=== PATIENT | male | born 1965 | race Caucasian/White ===

== ENCOUNTER 2019-02-27 19:04 | Emergency (ER) | payer BC ==
[~2019-02-27] VITALS: Ht 172.7 cm; Wt 147.4 kg
[~2019-02-27 19:04] MED LIST: LIPITOR10 MG; LISINOPRIL10 MG; METOPROLOL SUCC50 MG; PLAVIX75 MG PO
--- NOTE | 2019-02-27 20:11 | Diagnostic Imaging Report ---
LEFT KNEE - 3 Images HISTORY: Pain COMPARISON: None available. FINDINGS: Bones: No acute displaced fracture. No aggressive osseous lesion. Joints: Mild medial compartment narrowing. Minimal tricompartmental marginal osteophytosis. Soft tissues: The soft tissues appear unremarkable. IMPRESSION: 1. No acute radiographic abnormality. 2. Tricompartmental osteoarthrosis, mild medial compartment predominance. Signed by: Dr. Vj Oneal D.O., M.M.M. on 02/27/2019 8:07 PM
[2019-02-27] MEDS ORDERED: IBUPROFEN 200 MG TAB ONE (20:20)
[2019-02-27 20:21] VITALS: BP 140/78
[2019-02-27] MEDS ORDERED: IBUPROFEN 400 MG TAB PO ONE (20:30)
== END 2019-02-27 20:25 | disposition home or self-care (01) ==
LOC: FSED 19:04
DX: M25.562 Pain in left knee (principal); M17.12 Unilateral primary osteoarthritis, left knee; R26.2 Difficulty in walking, not elsewhere classified; I10 Essential (primary) hypertension; E66.9 Obesity, unspecified; K21.9 Gastro-esophageal reflux disease without esophagitis; E78.5 Hyperlipidemia, unspecified
CPT/HCPCS: 99283

== ENCOUNTER 2019-11-03 09:25 | Observation (INO) | payer BC ==
[~2019-11-03] VITALS: Ht 172.7 cm; Wt 137.4 kg
[~2019-11-03 09:25] MED LIST changes: -LIPITOR10 MG; +LIPITOR10 MG PO; -LISINOPRIL10 MG; +LISINOPRIL10 MG PO; -METOPROLOL SUCC50 MG; +METOPROLOL SUCC50 MG PO
--- OUTSIDE RECORDS SUMMARY | 2019-11-03 09:28 | XMS REPORT ---
Author Author [facility] Address Unknown Phone Unavailable Care Team Providers Care Competency Evaluated Nurse Aide Name Role Phone SABIHA RAMIRES Unavailable Unavailable Problems This patient has no known problems. Allergies, Adverse Reactions, Alerts This patient has no known allergies or adverse reactions. Medications This patient has no known medications. Results Test Description Test Time Test Comments Text Results Atomic Results Result Comments KNEE 3VW LT - HOPD 2019-02-27 20:04:00 [facility] [address] [address] Patient Name: PAPO TOLENTINO MR #: [id number] : 1965 Age/Sex: 53/M Req #: [id number] [facility] Physician: Ordered by: SABIHA RAMIRES MD Report #: [id number] Location: [facility] Room/Bed: Procedure: [id number] HOPD/KNEE 3VW LT - HOPD Exam Date: 02/27/19 Exam Time: 1954 REPORT STATUS: Signed LEFT KNEE - 3 Images HISTORY: Pain C OMPARISON: None available. FINDINGS: Bones: No acute displaced fracture. No aggressive osseous lesion. Joints: Mild medial compartment narrowing. Minimal tricompartmental marginal osteophytosis. Soft tissues: The soft tissues appear unremarkable. IMPRESSION: 1. No acute radiographic abnormality. 2. Tricompartmental osteoarthrosis, mild medial compartment predominance. Signed by: Luis Fernando TalbotO., M.M.M. on 02/27/2019 8:07 PM Dictated By: MAGGIE NAVA DO 06 Transcribed By: JASBIR on 02/27/192006 COPY TO: SABIHA RAMIRES MD
[2019-11-03] MEDS ORDERED: MORPHINE SULFATE INJ 4 MG/ML INJ 1ML IV STA (09:49)
--- NOTE | 2019-11-03 10:10 | Diagnostic Imaging Report ---
Chest, PA and lateral. History: Midsternal chest pain. Comparison: None available. Discussion: The cardiomediastinal silhouette and pulmonary vasculature are within normal limits. The lungs are clear without evidence of consolidation or effusion. There are degenerative changes of the thoracic spine. IMPRESSION: No radiographic evidence of acute cardiopulmonary abnormality. Signed by: Osorio Buck MD on 11/03/2019 10:07 AM
[2019-11-03] MEDS ORDERED: ONDANSETRON HCL INJ 2MG/ML 2ML 2 MG/ML VIAL IV PRN (11:30)
[2019-11-03] MEDS ORDERED: ASPIRIN 81 MG CHEW TAB PO ONE (11:30)
[2019-11-03] MEDS ORDERED: MORPHINE SULFATE INJ 4 MG/ML INJ 1ML IV PRN (11:30)
[2019-11-03 11:32] LABS: BASOPHILS # (AUTO) 0.1 (0.0-0.1); BASOPHILS % 0.6 % (0.0-1.0); EOSINOPHILS # (AUTO) 0.3 (0.0-0.4); EOSINOPHILS % 3.5 % (0.0-6.0); HEMATOCRIT 46.3 % (38.2-49.6); HEMOGLOBIN 15.6 g/dL (14.0-18.0); LYMPHOCYTES # (AUTO) 2.1 (1.0-3.2); LYMPHOCYTES % 24.9 % (18.0-39.1); MEAN CORPUSCULAR HEMOGLOBIN 31.5 pg (28-32); MEAN CORPUSCULAR HGB CONC 33.7 g/dL (31-35); MEAN CORPUSCULAR VOLUME 93.5 fL (81-99); MONOCYTES # (AUTO) 0.8 (0.2-0.8); MONOCYTES % 9.8 % (4.4-11.3); NEUTROPHILS # (AUTO) 5.1 (2.1-6.9); NEUTROPHILS % 60.8 % (38.7-80.0); PLATELET COUNT 249 x10e3/uL (140-360); RED BLOOD COUNT 4.95 x10e6/uL (4.3-5.7); RED CELL DISTRIBUTION WIDTH 13.3 % (11.7-14.4)
[2019-11-03 11:50] LABS: PARTIAL THROMBOPLASTIN TIME 31.1 seconds (23.8-35.5); PROTHROMBIN TIME 13.8 seconds (11.9-14.5)
[2019-11-03 11:54] LABS: ALANINE AMINOTRANSFERASE 27 IU/L (0-55); ALBUMIN 4.1 g/dL (3.5-5.0); ALKALINE PHOSPHATASE 79 IU/L (40-150); ANION GAP 13.6 mmol/L (8-16); BLOOD UREA NITROGEN 16 mg/dL (7-26); BUN/CREATININE RATIO 16 (6-25); CARBON DIOXIDE 23 mmol/L (22-29); CHLORIDE 107 mmol/L (98-107); CREATINE KINASE 121 IU/L (30-200); CREATININE, SERUM 1.02 mg/dL (0.72-1.25); EST GLOMERULAR FILTRATION RATE > 60 ML/MIN (60-); GLUCOSE 79 mg/dL (74-118); POTASSIUM 4.6 mmol/L (3.5-5.1); SODIUM 139 mmol/L (136-145)
[2019-11-03] MEDS ORDERED: ACETAMINOPHEN 325 MG TAB PO PRN (13:15)
--- NOTE | 2019-11-03 13:28 | NUR ---
dr jordan at pt bedside
--- NOTE | 2019-11-03 13:56 | NUR ---
RCD PT FROM ER BY BED PT IS ALERT AND ORIENTED VITALS CHECKED PT RESTING ON BED ADMISSION ASSESSMENT AND HISTORY DONE IV PATENT BY SALINE FLUSH INSTRUCTED THE PT REGARDING HOSPITAL POLICY AND ROUTINE BED LOW AND LOCKED CALL LIGHT IN REACH
[2019-11-03 14:43] VITALS: BP 138/77
[2019-11-03 15:12] VITALS: BP 138/77
[2019-11-03 15:21] VITALS: BP 138/77
--- NOTE | 2019-11-03 18:38 | NUR ---
PT RESTING ON BED BED SIDE REPORT GIVEN TO ONCOMING NURSE
--- NOTE | 2019-11-03 19:05 | NUR ---
WHILE THE BED SIDE REPORT TALKED THE NURSE DR CUMMINGS WAITING FOR THE CARDIAC ENZYMES REPORT ,PLEASE CALL THE REPORT WHEN IT READY
--- NOTE | 2019-11-03 19:05 | NUR ---
bedside shift report received from Mey LARSEN, PER [facility] CARDIAC ENZYMES ORDERED STAT RESULTS NEED TO BE CALLED TO MD EMILIANO DDOSON, RESULTS REMAIN PENDING, LAB CALLED BY [facility] TO SEE WHAT TIME THEY WILL POST
[2019-11-03 19:17] LABS: CREATINE KINASE 88 IU/L (30-200)
--- NOTE | 2019-11-03 19:50 | NUR ---
MD CUMMINGS CALLED AND CONTACTED ME FOR RESULT OF SECOND SET OF CARDIAC ENZYMES, ADVISED HIM THAT CK, CK-MB, AND TROPONIN I ARE ALL NEGATIVE, THIRD SET WILL BE DRAWN THIS SHIFT AT 0400
[2019-11-03 20:00] VITALS: BP 102/59
--- NOTE | 2019-11-03 20:25 | History and Physical ---
HISTORY OF PRESENT ILLNESS: The patient is a 54-year-old male with past medical history positive for coronary artery disease, status post stent in 2006, history of hypercholesterolemia, also obesity. The patient had an episode of chest pain. He was admitted to the hospital. REVIEW OF SYSTEMS: CARDIOVASCULAR: He had chest pain and shortness of breath. RESPIRATORY: Shortness of breath. No cough. GASTROINTESTINAL: No nausea. No vomiting. No diarrhea. GENITOURINARY: No frequency or dysuria. ALLERGIES: HE IS ALLERGIC TO CODEINE. PAST MEDICAL HISTORY: Coronary artery disease, status post stent back in 2006. He had a recent adenosine Cardiolite stress test done a week ago, which was negative for ischemia, but the foamite mixer told him that if the chest pain recurs, he will do a cardiac cath since the stent was placed in 2006. SOCIAL HISTORY: He does not smoke, does not drink. PHYSICAL EXAMINATION: HEART: Showed regular rhythm. Normal S1, S2 sounds. LUNGS: Clear bilaterally. ABDOMEN: Soft. EXTREMITIES: Show no evidence of edema. VITAL SIGNS: Blood pressure 124/63, heart rate 56 per minute, respiratory rate 14 per minute, O2 saturation 98%. LABORATORY DATA: On the blood work, we have BMP; sodium 139, potassium 4.6, chloride 107, CO2 23, BUN 16, creatinine 1.02, glucose 79, calcium 10.0, total bilirubin 1.6, AST 26, ALT 27, alkaline phosphatase 79, creatine kinase 121, CK-MB 0.50, troponin 0.001, brain natriuretic peptide 35.2, total protein 8.4, albumin 4.1, lipase is 41. On CBC, white blood count 8.34, hemoglobin 15.6, hematocrit 46.3, platelet count 249,000. PT 13.8, INR 1.00, PTT 31.1. Chest x-ray showed no significant cardiopulmonary abnormalities. EKG showed normal sinus rhythm, no evidence of any ST-segment elevation or depression. IMPRESSION: 1. Coronary artery disease, unstable angina. 2. Hypertension. 3. Obesity. 4. Hypercholesterolemia. PLAN OF TREATMENT: We are going to continue with Toprol, Lipitor, aspirin. Cardiology consult with Dr. Rich and he will be admitted on Tylenol 350 mg q.4 hours as needed for pain or fever. Robi Sri, MD LAS/ALYSON /[id number]
[2019-11-03 20:30] VITALS: BP 138/77
[2019-11-03] MEDS ORDERED: ATORVASTATIN 20 MG TAB PO SCH (21:00)
[2019-11-03 22:05] VITALS: BP 138/77
[2019-11-04] VITALS (9 sets, daily range): BP systolic 103–146; BP diastolic 55–86
--- NOTE | 2019-11-04 00:41 | Consultation ---
DATE OF CONSULTATION: 11/03/2019 Cardiac Consultation REASON FOR CONSULTATION: Chest pain and palpitations. HISTORY OF PRESENT ILLNESS: This is a 54-year-old gentleman, who is known with morbid obesity, hypertension, hyperlipidemia, coronary artery disease, status post myocardial infarction in July 2007, done by another oil house attendant. Repeat catheterization showed the stent is restenosed. Since that time, the patient followed by Dr. Reddy in the [facility]. He was seen recently. He had an echocardiogram and PET scanning and he has been told things are almost the same. The patient is having for the last couple months or so feeling all suddenly tightness, not feeling well, chest pressure. On exertion also, he will have symptoms. For that reason, he had all these tests. He came to the emergency room because he had another episode. Basically, his episodes are combination of palpitation, dumping like syndrome, easy fatigability, shortness of breath on exertion. REVIEW OF SYSTEMS: GENERAL: No fever. No chills. HEENT: No vision problem. No hearing problem. PULMONARY AND CARDIAC: As per acute illness. GI: Bloating, indigestion. : Increased frequency of urination. MUSCULOSKELETAL: Low back pain, knee pain. NEUROLOGICAL: No seizure activity. No weakness. ENDOCRINE: No diabetes mellitus. SOCIAL HISTORY: He is single. He is nonsmoker and non-alcohol drinker. He is in [employer] business. PAST MEDICAL HISTORY: 1. Coronary artery disease, myocardial infarction in 2006. 2. Hypertension since year 1999. 3. Hyperlipidemia since year 1999. 4. Cholecystectomy in 2007. 5. Gastric sleeve surgery in 2014. 6. Low back pain. 7. Knee pain. HOME MEDICATIONS: Lipitor 10 mg a day, Plavix 75 mg a day, lisinopril 10 mg a day, metoprolol tartrate 100 mg twice a day, Protonix 40 mg a day. ALLERGIES: CODEINE. FAMILY HISTORY: Father of suicide at age 34. Mother doing well at age 74. No brother. One sister with cervical cancer. No children. PHYSICAL EXAMINATION: VITAL SIGNS: Height of 5 feet 8 inches, weight of 303 pounds, blood pressure 130/70, heart rate of 50, respiratory rate of 18, and temperature of 97 Fahrenheit. HEENT: Pupils are equal and reactive. NECK: No elevation of jugular venous pulsation. No bruit. CHEST: Clear to auscultation and percussion. HEART: PMI in 5th left intercostal space. Normal first and second heart sounds. ABDOMEN: Soft with good bowel sounds. No organomegaly. No abdominal bruits. EXTREMITIES: No cyanosis, no clubbing, no edema. NEUROLOGIC: Awake, alert, and oriented. No motor or sensory deficits. LABORATORY DATA: Sodium of 139, potassium of 4.6, BUN of 16, creatinine of 1.2. Hemoglobin of 15.6, hematocrit 46%, white blood cell count of 8.3. EKG showing normal sinus rhythm. First set of cardiac enzymes normal. BNP of 35. IMPRESSION AND PLAN: 1. Chest pain in a patient with known coronary artery disease, status post prior PCI. 2. Hypercholesteremia. 3. Prior myocardial infarction and stent. 4. Palpitation. 5. Morbid obesity. Case discussed at length with the patient. Serial cardiac enzymes to be done. If the enzymes are negative, the patient has the option to go home and to be followed by his oil house attendant for further testing. If his enzymes are positive, then the patient will have a cardiac catheterization with possible intervention. All this are discussed and explained. Questions are answered. MD CIRA Nolasco/ALYSON /[id number]
--- NOTE | 2019-11-04 03:57 | NUR ---
CARDIAC ENZYMES DRAWN USING ASEPTIC TECHNIQUE SENT TO LAB FOR RESULTS
--- NOTE | 2019-11-04 04:49 | NUR ---
TELEMETRY REPORTING SR 63 BPM, PATIENT SEEN RESTING COMFORTABLY NO DISTRESS NOTED
[2019-11-04 05:22] LABS: BASOPHILS # (AUTO) 0.1 (0.0-0.1); BASOPHILS % 0.7 % (0.0-1.0); EOSINOPHILS # (AUTO) 0.4 (0.0-0.4); EOSINOPHILS % 4.9 % (0.0-6.0); HEMATOCRIT 43.1 % (38.2-49.6); HEMOGLOBIN 14.2 g/dL (14.0-18.0); LYMPHOCYTES # (AUTO) 2.1 (1.0-3.2); LYMPHOCYTES % 28.7 % (18.0-39.1); MEAN CORPUSCULAR HEMOGLOBIN 31.4 pg (28-32); MEAN CORPUSCULAR HGB CONC 32.9 g/dL (31-35); MEAN CORPUSCULAR VOLUME 95.4 fL (81-99); MONOCYTES # (AUTO) 0.7 (0.2-0.8); MONOCYTES % 10.2 % (4.4-11.3); NEUTROPHILS % 55.2 % (38.7-80.0); PLATELET COUNT 184 x10e3/uL (140-360); RED BLOOD COUNT 4.52 x10e6/uL (4.3-5.7); RED CELL DISTRIBUTION WIDTH 13.4 % (11.7-14.4)
[2019-11-04 05:46] LABS: ALANINE AMINOTRANSFERASE 21 IU/L (0-55); ALBUMIN 3.5 g/dL (3.5-5.0); ALBUMIN/GLOBULIN RATIO 1.1 (0.8-2.0); ALKALINE PHOSPHATASE 67 IU/L (40-150); ANION GAP 12.7 mmol/L (8-16); BLOOD UREA NITROGEN 16 mg/dL (7-26); BUN/CREATININE RATIO 17 (6-25); CALCIUM 8.9 mg/dL (8.4-10.2); CARBON DIOXIDE 25 mmol/L (22-29); CHLORIDE 105 mmol/L (98-107); CHOL/HDL RATIO 3.4 (3.9-4.7); CHOLESTEROL 117 MD/DL (0-199); CREATININE, SERUM 0.92 mg/dL (0.72-1.25); EST GLOMERULAR FILTRATION RATE > 60 ML/MIN (60-); GLUCOSE 97 mg/dL (74-118); HDL CHOLESTEROL 34 MG/DL (40-60); LDL CHOLESTEROL 65 MG/DL (60-130); POTASSIUM 3.7 mmol/L (3.5-5.1); SODIUM 139 mmol/L (136-145); TRIGLYCERIDES 88 MG/DL (0-149)
[2019-11-04 06:07] LABS: THYROID STIMULATING HORMONE 1.662 uIU/mL (0.350-4.940)
--- NOTE | 2019-11-04 07:05 | NUR ---
PATIENT IS AWAKE, ALERT, AND IN STABLE CONDITION WITH NO S/S OF RESPIRATORY DISTRESS. NO C/O CHEST PAIN VOICED BY PATIENT. TELEMETRY APPLIED. CALL LIGHT IS WITHIN REACH, PATIENT INSTRUCTED TO CALL FOR ASSISTANCE NEEDED.
[2019-11-04] MEDS ORDERED: METOPROLOL SUCCINATE 50 MG TAB XL PO SCH (09:00)
[2019-11-04] MEDS ORDERED: LISINOPRIL 10 MG TAB PO SCH (09:00)
[2019-11-04] MEDS ORDERED: METOPROLOL TARTRATE 25 MG TAB PO SCH (09:00)
[2019-11-04] MEDS ORDERED: ASPIRIN 325 MG TAB PO SCH (09:00)
[2019-11-04] MEDS ORDERED: CLOPIDOGREL BISULFATE 75 MG TAB PO SCH (09:00)
[2019-11-04] MEDS ORDERED: ONDANSETRON HCL 4 MG ORAL DISINTEGRATING TAB PO PRN (11:00)
--- NOTE | 2019-11-04 12:26 | NUR ---
PATIENT DISCHARGE HOME- PATIENT OFF THE UNIT AT 1127 PER WHEELCHAIR ACCOMPANIED BY PCT TO HIS MOTHER'S PERSONAL VEHICLE. PATIENT IN STABLE CONDITION WITH NO S/S OF RESPIRATORY DISTRESS. NO CHEST PAIN VOICED. IV REMOVED WITH TIP INTACT. DISCHARGE TEACHING AND INSTRUCTIONS GIVEN TO THE PATIENT. ALL PERSONAL ITEMS TAKEN WITH THE PATIENT AND HIS MOTHER.
--- NOTE | 2019-11-05 01:39 | Discharge Summary ---
HOSPITAL COURSE: The patient is a 54-year-old male with past medical history of positive for coronary artery disease, status post stent, hypertension, hypercholesterolemia, obesity, came here with chest pain. EKG was essentially unremarkable. No evidence of any ST-segment elevation or depression. Echocardiogram was done, also showed ejection fraction 40% to 45%, preliminary report showed no evidence of pericardial effusion. No evidence of severe valvular abnormality. The patient was seen by Dr. Mayberry, director vaccine. Troponins x2 were completely negative. The patient is chest pain free. The patient declined to have a cardiac catheterization done over here. He want to be done by his director vaccine, so he is going to be discharge home today, Cardiology releasing to go home. PHYSICAL EXAMINATION: HEART: Showed regular rhythm. Normal S1, S2 sound. LUNGS: Clear bilaterally. ABDOMEN: Soft. EXTREMITIES: Showed no evidence of cyanosis or hematoma. IMPRESSION: 1. Coronary artery disease-unstable angina. 2. Hypertension. 3. Hypercholesterolemia. 4. Obesity. PLAN OF TREATMENT: He is going to resume the home medication, which include all the antiplatelet agents and statins including aspirin 325 mg daily, continue Lipitor 20 mg daily, Plavix 75 mg daily, lisinopril 10 mg daily, metoprolol 50 mg daily. The patient going to be discharged home today with instruction to follow up with primary care physician. Diet, low-salt diet. He is going to see his director vaccine, Dr. Mayberry this week. Also, he declined to have a cardiac cath here. MD DAISHA Fry/ALYSON /[id number]
== END 2019-11-04 11:27 | disposition home or self-care (01) ==
LOC: ER 09:25 → ERHOLD 11:25 → MED/SURG2 14:08
PROVIDERS: ADMIT Internal Medicine; ATTEND Internal Medicine
DX: I25.110 Atherosclerotic heart disease of native coronary artery with unstable angina pectoris (principal); Z88.5 Allergy status to narcotic agent; Z95.5 Presence of coronary angioplasty implant and graft; E78.00 Pure hypercholesterolemia, unspecified; I10 Essential (primary) hypertension; Z68.42 Body mass index [BMI] 45.0-49.9, adult; I25.2 Old myocardial infarction; E78.5 Hyperlipidemia, unspecified; Z90.49 Acquired absence of other specified parts of digestive tract; E66.01 Morbid (severe) obesity due to excess calories; R00.2 Palpitations
CPT/HCPCS: 36415 ×2; 71046; 80053 ×2; 80061; 82550; 82553; 82948; 83690; 83880; 84443; 84484; 85025 ×2; 85610; 85730; 93005; 93306; 99284; G0378 ×2

== ENCOUNTER 2021-07-17 13:59 | Emergency (ER) | payer BC ==
[~2021-07-17] VITALS: Ht 172.7 cm; Wt 139.4 kg
[2021-07-17] MEDS ORDERED: PROTONIX20 MG PO (14:52)
[2021-07-17] MEDS ORDERED: CEFDINIR300 MG PO (16:16)
== END 2021-07-17 16:26 | disposition home or self-care (01) ==
LOC: FSED 16:15
DX: J01.90 Acute sinusitis, unspecified (principal); R43.2 Parageusia; R63.1 Polydipsia; I10 Essential (primary) hypertension; E78.5 Hyperlipidemia, unspecified; K21.9 Gastro-esophageal reflux disease without esophagitis; E66.01 Morbid (severe) obesity due to excess calories; Z98.84 Bariatric surgery status; I25.2 Old myocardial infarction; Z95.5 Presence of coronary angioplasty implant and graft; Z86.79 Personal history of other diseases of the circulatory system
CPT/HCPCS: 36415; 81003; 82948; 99283

== ENCOUNTER 2025-03-21 08:50 | Emergency (ER) | payer BC ==
[~2025-03-21] VITALS: Ht 172.7 cm; Wt 139.3 kg
[~2025-03-21 08:50] MED LIST changes: +CEFDINIR300 MG PO; +PROTONIX20 MG PO
[2025-03-21 09:23] VITALS: TEMP 98.2
[2025-03-21 12:20] VITALS: PULSE 72; RESP 16; O2SAT 98
== END 2025-03-21 12:24 | disposition home or self-care (01) ==
LOC: ER 09:18
DX: R07.89 Other chest pain (principal); S20.212A Contusion of left front wall of thorax, initial encounter; I16.0 Hypertensive urgency; W22.09XA Striking against other stationary object, initial encounter; Y92.89 Other specified places as the place of occurrence of the external cause; I10 Essential (primary) hypertension; E78.5 Hyperlipidemia, unspecified; I25.10 Atherosclerotic heart disease of native coronary artery without angina pectoris; K21.9 Gastro-esophageal reflux disease without esophagitis; E66.01 Morbid (severe) obesity due to excess calories; I25.2 Old myocardial infarction; Z95.5 Presence of coronary angioplasty implant and graft; Z98.84 Bariatric surgery status
CPT/HCPCS: 71250; 99283